=== PATIENT | female | born 1985 | race African-American/Black ===

== ENCOUNTER 2019-07-31 10:23 | Inpatient (IN) | payer MEDICAID ==
[2019-07-31 10:58] LABS: APPEARANCE,URINE SLIGHTLY-CLOUDY; BILIRUBIN,URINE NEGATIVE (NEGATIVE); COLOR,URINE AMBER; GLUCOSE, URINE NEGATIVE (NEGATIVE); KETONES,URINE TRACE mg/dL (NEGATIVE); LEUKOCYTE ESTERASE,URINE NEGATIVE (NEGATIVE); NITRITE,URINE NEGATIVE (NEGATIVE); PROTEIN,URINE 100 mg/dL (NEGATIVE); URINE SPECIFIC GRAVITY 1.027
[2019-07-31] MEDS ORDERED: CEFAZOLIN SODIUM 1 GM in DEXTROSE 5%-WATER 50 ML IV PRN (11:07)
--- NOTE | 2019-07-31 11:16 | Admission Physical ---
Datetime Report Generated by CPN: 07/31/2019 11:15 CURRENT ADMISSION Chief Complaint: Suspected Ruptured Membranes Indication for Induction: Not Applicable Admit Impression : Term, Intrauterine ; Ruptured Membranes Admit Impression- Other: transverse presentation maternal right verified with bedside sono performed by myself Admit Plan: Admit to Unit; Initiate Section Protocol ALLERGIES Medication Allergies: No Medication Allergies: No Known Allergies (09/17/2014) Latex: No Latex Allergies Food Allergies: none Environmental Allergies: none OBSTETRICAL HISTORY EDC: 08/10/2019 00:00 : 2 Para: 1 Term: 1 : 0 SAB: 0 IAB: 0 Ectopic: 0 Livin Cesareans: 0 VBACs: 0 Multiple Births: 0 Gestational Diabetes: No Rh Sensitization: No Incompetent Cervix: No RASHEEDA: No Infertility: No ART Treatment: No Uterine Anomaly: No IUGR: No Hx Previous C/S: No Macrosomia: No Hx Loss/Stillborn: No PIH: No Hx : No Placenta Previa/Abruption: No Depression/PP Depression: No PTL/PROM: No Post Hemorrhage: No Current Procedures: Ultrasound Obstetrical History Comments: G1- 2009 baby boy G2- current SEE RECORDS Alcohol: No Marijuana : No Cocaine: No Other Illicit Drugs: No Cigarettes: Never Smoker. 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 Heart Disease: No Hosp/Surgery: Yes Autoimmune Disorder: No Anesthetic Complications: No Kidney Disease: No Abnormal Pap Smear: No Neuro/Epilepsy: No Psychiatric Disorders: No Other Medical Diseases: No Hepatitis/Liver Disease: No Significant Family History: No Varicosities/Phlebitis: No Trauma/Violence : No Thyroid Dysfunction: No Medical History Comments: breast reduction 2019 INFECTIOUS HISTORY Gonorrhea: No Genital Herpes: No Chlamydia: No Tuberculosis: No Syphilis: No Hepatitis: No HIV/AIDS Exposure: No Rash or Viral Illness: No HPV: No PHYSICAL EXAM General: Normal HEENT: Normal Neurologic: Normal Thyroid: Normal Heart: Normal Lungs: Normal Breast: Normal Back: Normal Abdomen: Normal Genitourinary Exam: Normal Extremities: Normal DTRs: Normal Pelvic Type: Adequate Vital Signs: Reviewed; Within Normal Limits VAGINAL EXAM Dilatation: 1 Effacement: 50 Station: -3 MEMBRANES Pooling: Positive Membranes: Ruptured Amniotic Fluid Color: Clear FETUS A EGA: 38.4 Monitoring: External US FHR- Baseline: 130 Variability: Moderate 6-25bpm Accelerations: 15X15 Decelerations: None FHR Category: Category I Estimated Weight (gm): 3500 Presentation: Transverse Admit Comment: proceed with primary c/section for malpresentation. Pt declines tubal with c/section. PLANS FOR LABOR AND DELIVERY Labor and Delivery: None Pain Management: Spinal Feeding Preference: Formula Benefit of Breast Feed Discussed: Yes Circumcision: N/A INFORMED CONSENT Signature: with User ID: [email or web address]
[2019-07-31 11:19] LABS: URINE AMPHETAMINES SCREEN NEGATIVE; URINE BARBITURATES SCREEN NEGATIVE; URINE BENZODIAZEPINES SCREEN NEGATIVE; URINE COCAINE SCREEN NEGATIVE; URINE MARIJUANA (THC) SCREEN NEGATIVE; URINE METHADONE SCREEN NEGATIVE; URINE PHENCYCLIDINE SCREEN NEGATIVE
[2019-07-31] MEDS ORDERED: CEFAZOLIN 1 GM/D5W RTU 2 GM/100 ML RTUPB IV ONE (11:21)
[2019-07-31] MEDS ORDERED: CITRIC ACID/SODIUM CITRATE ORAL SOLN 15 ML UDCUP ONE (11:21)
[2019-07-31 11:39] LABS: ABSOLUTE MONOCYTES (AUTO) 0.5 10^3/uL (0.1-1.4); ABSOLUTE NEUT (AUTO) 6.8 10^3/uL (1.7-8.2); BASOPHILS % (AUTO) 0.1 % (0-2); EOSINOPHILS % (AUTO) 0.4 % (0-6); HEMATOCRIT 35.6 % (36.0-47.0); HEMOGLOBIN 12.3 g/dL (12.0-15.5); LYMPHOCYTES % (AUTO) 12.3 % (13-45); MEAN CORPUSCULAR HEMOGLOBIN 30.5 pg (27.0-33.4); MEAN CORPUSCULAR HGB CONC 34.6 g/dL (32.0-36.0); MEAN CORPUSCULAR VOLUME 88 fl (80-97); MONOCYTES % (AUTO) 6.1 % (3-13); PLATELET COUNT 261 10^3/uL (150-450); RED BLOOD COUNT 4.04 10^6/uL (3.72-5.28); RED CELL DISTRIBUTION WIDTH 15.7 % (11.5-14.0); SEGMENTED NEUTROPHILS % (AUTO) 81.1 % (42-78); TOTAL CELLS COUNTED % (AUTO) 100 %; WHITE BLOOD COUNT 8.4 10^3/uL (4.0-10.5)
[2019-07-31] MEDS ORDERED: ONDANSETRON HCL INJ/PF 4 MG/2 ML SDV ONE (11:55)
[2019-07-31] MEDS ORDERED: PHENYLEPHRINE HCL INJ/PF 10 MG/1 ML SDV ONE (11:55)
[2019-07-31] MEDS ORDERED: OXYTOCIN 10 UNIT/ML VIAL ONE ×2 (11:55→12:34)
[2019-07-31] MEDS ORDERED: MIDAZOLAM 2 MG/2 ML INJ ONE (11:55)
[2019-07-31] MEDS ORDERED: OXYCODONE-ACETAMINOPHEN 5-325 MG TABLET PO PRN (12:53)
[2019-07-31] MEDS ORDERED: ACETAMINOPHEN 1,000 MG/100 ML RTUPB IV PRN (12:53)
[2019-07-31] MEDS ORDERED: DIPH/PERTUSS(ACELL)/TETANUS VAC/PF 0.5 ML SYR (>=10YO) IM PRN (12:53)
[2019-07-31] MEDS ORDERED: MORPHINE SULFATE 10 MG/ML INJ IV PRN (12:53)
[2019-07-31] MEDS ORDERED: ACETAMINOPHEN 325 MG TABLET PO PRN (12:53)
[2019-07-31] MEDS ORDERED: PROMETHAZINE HCL INJ 25 MG/1 ML VIAL IV PRN (12:53)
[2019-07-31] MEDS ORDERED: MEASLES,MUMPS&RUBELLA VACC/PF 0.5 ML VIAL SUBCUT PRN (12:53)
[2019-07-31] MEDS ORDERED: SIMETHICONE 80 MG TAB.CHEW PO PRN (12:53)
[2019-07-31] MEDS ORDERED: OXYTOCIN/NORMAL SALINE 20 UNIT/1,000 ML RTUINJ IV PRN (12:53)
--- NOTE | 2019-07-31 13:03 | Operative Report ---
Operative Report DATE OF SURGERY: 07/31/19 PREOPERATIVE DIAGNOSIS: IUP @ 38 5/7 wks, transverse maternal right presentatio n, back down POSTOPERATIVE DIAGNOSIS: same OPERATION: Primary low transverse hysterotomy section SURGEON: BETTY SERRANO ANESTHESIA: Spinal COMPLICATIONS: None ESTIMATED BLOOD LOSS: 750 cc INTRAOPERATIVE FINDINGS: Female infant maternal right transverse back down presentation anterior placenta Apgars of 9 and 9 PROCEDURE: PROCEDURE IN DETAIL: The patient was taken to the operating room, prepared and draped in a normal sterile fashion in a supine position with a leftward tilt. A transverse skin incision was made with a scalpel and carried through to the underlying layer of fascia with the same scalpel. The fascia was excised in the midline and extended laterally with Anette. The fascia was then dissected from the rectus muscle sharply with Anette and the rectus muscle was divided and the peritoneal cavity was entered sharply with the same Metzenbaum. With good visualization of the bladder and the uterus the bladder blade was inserted. The hysterotomy was nicked with a scalpel and extended laterally with surgeon finger fraction. The infant was then delivered atraumatically. The nose and mouth were suctioned with a suction bulb, the cord was clamped and cut and handed off to awaiting pediatricians. Cord blood was collected. The placenta was removed manually. The uterus was exteriorized and cleared of clots and debris. The hysterotomy was closed with 0 Monocryl in a running, locked fashion. A second layer of the same suture was used to imbricate to ensure hemostasis. The uterus was returned to the abdomen and peritoneal cavity was cleared of clots and debris. The rectus muscle and peritoneum were repaired with mattress stitch of 2-0 Chromic. The fascia was closed with 0-Vicryl. The subcutaneous layer was closed with plain catgut and the skin was closed with 4-0 Vicryl. The patient tolerated the procedure well. Sponge, lap, and needle counts correct x2 and the patient was taken to recovery in stable condition.
[2019-07-31] MEDS ORDERED: OXYTOCIN/NORMAL SALINE 20 UNIT/1,000 ML RTUINJ ONE (13:17)
[2019-07-31] MEDS ORDERED: ACETAMINOPHEN 1,000 MG/100 ML RTUPB IV ONE (13:23)
[2019-07-31] MEDS ORDERED: KETOROLAC TROMETHAMINE INJ/PF 30 MG/1 ML SDV ONE (14:02)
[2019-07-31] MEDS: KETOROLAC TROMETHAMINE INJ/PF 30 MG/1 ML SDV IV SCH ×2 (14:02→22:20)
[2019-07-31] MEDS ORDERED: FENTANYL CITRATE INJ/PF 100 MCG/2 ML AMPUL ONE (14:24)
--- NOTE | 2019-07-31 14:56 | Delivery Summary ---
Del Sum A-C Datetime Report Generated by CPN: 07/31/2019 14:56 DELIVERY PERSONNEL DELIVERY PERSONNEL: [id number] Delivery Doctor:: Vanessa Jean MD ASSESSMENT RN:: Wander Lott CRNA Forklift Mechanic:: Marisol Rebollar RN Neonatal Nurse Practitioner:: TINY Padilla Event Crew Technician/STOVE BOTTOM WORKER: Carly Sosa CST Event Crew Technician/STOVE BOTTOM WORKER: Elisabeth Barrios, ST MATERNAL INFORMATION Delivery Anesthesia: Spinal Medications After Delivery: Pitocin Drip 20 Units/1000ml NSS Delivery QBL: 540 Maternal Complications: None LABOR SUMMARY EDC: 08/10/2019 00:00 No. Babies in Womb: 1 Attempted: No Labor Anesthesia: None LABOR INFORMATION Reason for Induction: Not Applicable Oxytocin: N/A Group B Beta Strep: negative Antibiotics # of Doses: 1 Antibiotics Time of Last Dose: 1206 Name of Antibiotic Given: Ancef 2 gm Steroids Given: None Reason Steroids Not Administered: Not Applicable MEMBRANES Membranes Rupture Method: Spontaneous Rupture of Membranes: 07/31/2019 07:30 Length of Rupture (hr): 4.90 Amniotic Fluid Color: Clear Amniotic Fluid Amount: Small Amniotic Fluid Odor: Normal STAGES OF LABOR Stage 3 hr: 0 Stage 3 min: 0 VAGINAL DELIVERY Episiotomy: None Laceration #1: None Laceration Extension #1: N/A Laceration Repair: Not Applicable Sponge Count Correct: N/A Sharps Count Correct: N/A CSECTION DELIVERY Primary Indication: Transverse/Complex Presentation Secondary Indication: N/A CSection Urgency: Non-Scheduled CSection Incidence: Primary Labor: No Labor Elective: Nonelective CSection Incision: Lower Uterine Transverse BABY A INFORMATION Infant Delivery Date/Time: 07/31/2019 12:24 Method of Delivery: Nurse Controlled Delivery: No Born in Route : No : N/A Forceps: N/A Vacuum Extraction: N/A Shoulder Dystocia : No PRESENTATION/POSITION BABY A Presentation: Other Cephalic Presentation: N/A Vertex Position: Transverse maternal right presentation back down with anterior placenta Breech Presentation: Transverse PLACENTA INFORMATION BABY A Placenta Delivery Time : 07/31/2019 12:24 Placenta Method of Delivery: Manual Removal Placenta Status: Delivered SCORES BABY A Heart Rate 1 min: >100 bpm Resp Effort 1 min: Good Cry Reflex Irritability 1 min: Cough or Sneeze or Pulls Away Muscle Tone 1 min: Active Motion Color 1 min: Body [place], Extremities Blue Resuscitation Effort 1 min: Tactile Stimulation SCORE 1 MIN: 9 Heart Rate 5 min: >100 bpm Resp Effort 5 min: Good Cry Reflex Irritability 5 min: Cough or Sneeze or Pulls Away Muscle Tone 5 min: Active Motion Color 5 min: Body [place], Extremities Blue SCORE 5 MIN: 9 INFANT INFORMATION BABY A Gestational Age at Delivery: 38.4 Gestational Status: Early Term- 37- 38.6 Weeks Infant Outcome : Liveborn Condition : Stable Infant Sex: Female IDENTIFICATION BABY A Verification Date/Time: 07/31/2019 12:25 ID Band Number: [id number] Mother's Name Verified: Yes RN Verifying : Lacie Pickens RN, CKatlyn Rebollar RN WEIGHT/LENGTH BABY A Birthweight (gm): 2965 Infant Weight (lb): 6 Infant Weight (oz): 9 Infant Length (in): 19.50 Infant Length (cm): 49.53 CORD INFORMATION BABY A No. Cord Vessels: 3 Nuchal Cord : N/A Cord Blood Taken: Yes-For Eval (Mom's Blood Type - or O+) Suction: None ASSESSMENT BABY A Physical Findings at Delivery: Within Normal Limits; Sami Spots Skin to Skin: No Skin to Skin Time (min): 0 News Clerk/ALS Called : No Care By: Abisai Monge RN/TINY Kaufman Transferred To: [facility] BABY B INFORMATION : N/A
[2019-07-31] MEDS: OXYCODONE-ACETAMINOPHEN 5-325 MG TABLET PO PRN ×2 (15:54→20:15)
[2019-07-31] MEDS: DOCUSATE SODIUM 100 MG CAPSULE PO SCH (19:04)
[2019-07-31] MEDS ORDERED: RINGERS SOLUTION,LACTATED 1,000 ML IV PRN (21:53)
[2019-08-01] MEDS: OXYCODONE-ACETAMINOPHEN 5-325 MG TABLET PO PRN ×3 (03:08→20:52)
[2019-08-01] MEDS: KETOROLAC TROMETHAMINE INJ/PF 30 MG/1 ML SDV IV SCH (05:30)
[2019-08-01 06:02] LABS: HEMATOCRIT 30.6 % (36.0-47.0); HEMOGLOBIN 10.6 g/dL (12.0-15.5); MEAN CORPUSCULAR HEMOGLOBIN 30.8 pg (27.0-33.4); MEAN CORPUSCULAR HGB CONC 34.5 g/dL (32.0-36.0); MEAN CORPUSCULAR VOLUME 89 fl (80-97); PLATELET COUNT 204 10^3/uL (150-450); RED BLOOD COUNT 3.43 10^6/uL (3.72-5.28); RED CELL DISTRIBUTION WIDTH 15.6 % (11.5-14.0); WHITE BLOOD COUNT 10.1 10^3/uL (4.0-10.5)
[2019-08-01] MEDS ORDERED: RINGERS SOLUTION,LACTATED 500 ML IV ONE (06:15)
[2019-08-01] MEDS: PRENATAL VITAMIN W DHA CAPSULE PO SCH (09:35)
[2019-08-01] MEDS: DOCUSATE SODIUM 100 MG CAPSULE PO SCH ×2 (09:35→18:23)
--- NOTE | 2019-08-01 10:49 | PDOC PROGRESS REPORT ---
Subjective-OB Progress Note for:: 08/01/19 Subjective: reports bleeding slowing, pain controlled with current meds. denies needs. + passing gas Physical Exam (OB) Vital Signs: Temp Pulse Resp BP Pulse Ox 97.4 F 62 16 110/65 98 08/01/19 07:05 08/01/19 07:05 08/01/19 07:05 08/01/19 07:05 08/01/19 07:05 Intake & Output 07/31/19 08/01/19 08/02/19 06:59 06:59 06:59 Intake Total 2500 Output Total 465 300 Balance 2034 - Weight 100.2 kg - Dressing Removed: Yes Incision: Dressing, Well Approximated Closure Type: op-site - Abdomen Description: Tender, Soft Hernia Present: No Fundal Description: Firm, Midline Fundal Height: u/u - u/2 - Abdominal Distension: No distension - Extremities Lower extremities: Nichole's sign - neg Calf: Normal, Nontender Objective-Diagnostic Laboratory: 08/01/19 05:37 07/31/19 07/31/19 07/31/19 10:40 11:25 11:25 WBC 8.4 RBC 4.04 Hgb 12.3 Hct 35.6 L MCV 88 MCH 30.5 MCHC 34.6 RDW 15.7 H Plt Count 261 Seg Neutrophils % 81.1 H Urine Color HUGH Urine Appearance SLIGHTLY-CLOUDY Urine pH 5.0 Ur Specific [place] 1.027 Urine Protein 100 H Urine Glucose (UA) NEGATIVE Urine Ketones TRACE H Urine Blood SMALL H Urine Nitrite NEGATIVE Ur Leukocyte Esterase NEGATIVE Blood Type O POSITIVE Antibody Screen NEGATIVE 08/01/19 05:37 WBC 10.1 RBC 3.43 L Hgb 10.6 L Hct 30.6 L MCV 89 MCH 30.8 MCHC 34.5 RDW 15.6 H Plt Count 204 Seg Neutrophils % Urine Color Urine Appearance Urine pH Ur Specific [place] Urine Protein Urine Glucose (UA) Urine Ketones Urine Blood Urine Nitrite Ur Leukocyte Esterase Blood Type Antibody Screen Assessment and Plan(PN) - Time Spent with Patient Time with patient: Less than 15 minutes - Disposition Anticipated Discharge: Home Within: within 24 hours
[2019-08-01] MEDS: IBUPROFEN 800 MG TABLET PO SCH ×3 (12:22→23:42)
[2019-08-02] MEDS: IBUPROFEN 800 MG TABLET PO SCH ×2 (05:11→11:29)
--- NOTE | 2019-08-02 09:16 | PDOC DISCHARGE SUMMARY ---
Impression - Admit/DC Date/PCP Admission Date/Primary Care Provider: 07/31/19 11:07 BETTY SERRANO MD Discharge Date: 08/02/19 - Discharge Diagnosis (1) Normal course Is this a current diagnosis for this admission?: Yes (2) Transverse lie, delivered, current hospitalization Is this a current diagnosis for this admission?: Yes (3) delivery delivered Is this a current diagnosis for this admission?: Yes - Additional Information Resuscitation Status: Full Code Discharge Diet: Regular Discharge Activity: Balance Activity w/Rest, No Lifting Over 10 Pounds, No Lifting/Push/Pulling, Pelvic Rest, No tub bath Referrals: BETTY SERRANO MD [Primary Care Provider] - Prescriptions: Oxycodone HCl/Acetaminophen [Percocet 5-325 mg Tablet] 1 tab PO Q4HP PRN #30 tablet PRN Reason: For Pain Scale 3-5 Ibuprofen [Motrin 800 mg Tablet] 800 mg PO Q8HP PRN #60 tablet PRN Reason: For Pain Scale 1-3 Home Medications: Vit,Calc76/Iron/Folic [Prenatabs Rx Tablet] 1 tab PO DAILY 07/31/19 Ibuprofen [Motrin 800 mg Tablet] 800 mg PO Q8HP PRN #60 tablet 08/02/19 Oxycodone HCl/Acetaminophen [Percocet 5-325 mg Tablet] 1 tab PO Q4HP PRN #30 tablet 08/02/19 Results Laboratory Results: WBC 10.1 10^3/uL (4.0-10.5) 08/01/19 05:37 RBC 3.43 10^6/uL (3.72-5.28) L 08/01/19 05:37 Hgb 10.6 g/dL (12.0-15.5) L 08/01/19 05:37 Hct 30.6 % (36.0-47.0) L 08/01/19 05:37 MCV 89 fl (80-97) 08/01/19 05:37 MCH 30.8 pg (27.0-33.4) 08/01/19 05:37 MCHC 34.5 g/dL (32.0-36.0) 08/01/19 05:37 RDW 15.6 % (11.5-14.0) H 08/01/19 05:37 Plt Count 204 10^3/uL (150-450) 08/01/19 05:37 Lymph % (Auto) 12.3 % (13-45) L 07/31/19 11:25 Lane % (Auto) 6.1 % (3-13) 07/31/19 11:25 Eos % (Auto) 0.4 % (0-6) 07/31/19 11:25 Baso % (Auto) 0.1 % (0-2) 07/31/19 11:25 Absolute Neuts (auto) 6.8 10^3/uL (1.7-8.2) 07/31/19 11:25 Absolute Lymphs (auto) 1.0 10^3/uL (0.5-4.7) 07/31/19 11:25 Absolute Monos (auto) 0.5 10^3/uL (0.1-1.4) 07/31/19 11:25 Absolute Eos (auto) 0.0 10^3/uL (0.0-0.6) 07/31/19 11:25 Absolute Basos (auto) 0.0 10^3/uL (0.0-0.2) 07/31/19 11:25 Seg Neutrophils % 81.1 % (42-78) H 07/31/19 11:25 Urine Color HUGH 07/31/19 10:40 Urine Appearance SLIGHTLY-CLOUDY 07/31/19 10:40 Urine pH 5.0 (5.0-9.0) 07/31/19 10:40 Ur Specific [place] 1.027 07/31/19 10:40 Urine Protein 100 mg/dL (NEGATIVE) H 07/31/19 10:40 Urine Glucose (UA) NEGATIVE mg/dL (NEGATIVE) 07/31/19 10:40 Urine Ketones TRACE mg/dL (NEGATIVE) H 07/31/19 10:40 Urine Blood SMALL (NEGATIVE) H 07/31/19 10:40 Urine Nitrite NEGATIVE (NEGATIVE) 07/31/19 10:40 Urine Bilirubin NEGATIVE (NEGATIVE) 07/31/19 10:40 Urine Urobilinogen 2.0 mg/dL (<2.0) H 07/31/19 10:40 Ur Leukocyte Esterase NEGATIVE (NEGATIVE) 07/31/19 10:40 Urine Ascorbic Acid NEGATIVE (NEGATIVE) 07/31/19 10:40 Membranes Rupture POSITIVE (NEGATIVE) H 07/31/19 10:30 Urine Opiates Screen NEGATIVE 07/31/19 10:40 Urine Methadone Screen NEGATIVE 07/31/19 10:40 Ur Barbiturates Screen NEGATIVE 07/31/19 10:40 Ur Phencyclidine Scrn NEGATIVE 07/31/19 10:40 Ur Amphetamines Screen NEGATIVE 07/31/19 10:40 U Benzodiazepines Scrn NEGATIVE 07/31/19 10:40 Urine Cocaine Screen NEGATIVE 07/31/19 10:40 U Marijuana (THC) Screen NEGATIVE 07/31/19 10:40 Blood Type O POSITIVE 07/31/19 11:25 Antibody Screen NEGATIVE 07/31/19 11:25
[2019-08-02] MEDS: DOCUSATE SODIUM 100 MG CAPSULE PO SCH (09:39)
[2019-08-02] MEDS: PRENATAL VITAMIN W DHA CAPSULE PO SCH (09:39)
[2019-08-02 12:07] VITALS: BP 105/70
== END 2019-08-02 12:55 | disposition home or self-care (01) | DRG 788 ==
LOC: LC 10:23 → LR 11:07 → 2N 14:39
PROVIDERS: ADMIT Obstetrics & Gynecology; ATTEND Obstetrics & Gynecology
PROC: 10D00Z1 Extraction of Products of Conception, Low, Open Approach (ICD-10-PCS; principal; 2019-07-31)
PROC: 3E0234Z Introduction of Serum, Toxoid and Vaccine into Muscle, Percutaneous Approach (ICD-10-PCS; 2019-08-02)
DX: O32.2XX0 Maternal care for transverse and oblique lie, not applicable or unspecified (principal); Z3A.38 38 weeks gestation of pregnancy; Z37.0 Single live birth; Z23 Encounter for immunization
CPT/HCPCS: 1961; 36415; 80307; 81005; 84112; 85025; 85027; 86592; 86850; 86900; 86901; 90715; 94760; 94799; 99140; J0131; J0690; J1885; J2250; J2270; J2370; J2405; J2590; J3010; J3490; J7120